=== PATIENT | female | born 1950 | race Caucasian/White ===

== ENCOUNTER → 2017-02-02 | Outpatient (CLI) | payer OTHER ==
[~2017-02-02] VITALS: Ht 147.3 cm; Wt 49.4 kg
[~2017-02-02] MED LIST: ASPIR 8181 MG PO; B12INJ IM; IBUPROFEN 200200 M1 PO; KLOR-CON 1010 MEQ PO; LASIX 40 MG TAB40 M2 PO; LIPITOR80 MG PO; LOSARTAN POTASS50 MG PO; METRONIDAZOLE45 G1 TOP; NORVASC5 MG PO; REMICADE 1100 MG/VIA IV; VITAMIN D32000 UNI1 PO
--- NOTE | ~2017-02-02 | P ---
Formerly [facility] [place] [address] PROCEDURE REPORT Name: PJ RIOS [id number] Admission: 02/02/17 Attend Phys: Coy Trimble Discharge: Date of : 48 Report #: [id number] THIS REPORT FOR: //name// CC: Kalia Bermudez DATE OF SERVICE: 02/02/2017 PROCEDURE PERFORMED: Upper endoscopy with biopsies. HISTORY OF PRESENT ILLNESS: The patient is a 67-year-old female with a history of anemia and apparently hemoccult positive stool recently. She has a history of ankylosing spondylitis, is on Remicade. She also takes aspirin. Plan is for EGD and colonoscopy today. She denies any obvious bright red blood per rectum, but does report some dark stools at times. DESCRIPTION OF PROCEDURE: The risks and benefits of the procedure were explained to the patient, those risks including but not limited to bleeding, perforation, the risk of sedation. She understood these risks and gave informed consent. Sedation was given using propofol per anesthesia. Next, using a standard Scancell upper endoscope, the scope was placed in the patient's mouth and advanced under direct vision through the esophagus, stomach and into the second portion of the duodenum. The esophagus was normal throughout. The GE junction was normal. There was a mild diffuse atrophic appearing gastritis throughout the stomach. No evidence of ulcerations or erosions. No bleeding was noted. Biopsies were obtained to rule out H. pylori. The pylorus was normal and patent. The duodenal bulb, first and second portion were all normal. Because of her history of anemia, biopsies were obtained to rule out the possibility of celiac sprue. The scope was then withdrawn and the procedure terminated. The patient tolerated the procedure well. IMPRESSION: 1. Mild atrophic tapering gastritis. Biopsies obtained. 2. Otherwise, normal upper endoscopy. RECOMMENDATIONS: 1. Await biopsy results. 2. We will proceed with colonoscopy next today. Thank you for allowing me to participate in her care. <ELECTRONICALLY SIGNED> By: Coy Bermudez MD 02/05/17 1705 1142 1157 Coy Bermudez MD /nt
--- NOTE | ~2017-02-02 | P ---
[facility] [place] [address] PROCEDURE REPORT Name: PJ RIOS Room #: REG [facility]ah[facility].#: [id number] Admission: 02/02/17 Attend Phys: Coy Trimble Discharge: Date of : 48 Report #: [id number] THIS REPORT FOR: //name// CC: Kalia Bermudez DATE OF SERVICE: 02/02/2017 PROCEDURE PERFORMED: Colonoscopy. HISTORY OF PRESENT ILLNESS: The patient is a 67-year-old female with iron deficiency anemia. Upper endoscopy was just performed, which showed a mild gastritis, otherwise normal. Plan is for colonoscopy. DESCRIPTION OF PROCEDURE: The risks and benefits of the procedure were explained to the patient, those risks including but not limited to bleeding, perforation and the risk of sedation. She understood these risks and gave informed consent. Sedation was given using propofol per anesthesia. Next, a digital rectal exam was initially performed, which was normal. Next, using a standard Fujinon colonoscope, the scope was placed in the patient's anus and advanced under direct vision to the cecum. The overall prep was excellent. The cecum and ileocecal valve were normal in appearance. Terminal ileum was intubated and normal in appearance. The ascending, transverse, descending and sigmoid colon were all normal. The rectal mucosa was normal. On retroflexion, small nonbleeding internal hemorrhoids were noted. The scope was then withdrawn and the procedure terminated. The patient tolerated the procedure well. IMPRESSION: 1. Nonbleeding internal hemorrhoids. 2. Otherwise, normal colonoscopy. RECOMMENDATIONS: No stigmata of bleeding on EGD or colonoscopy today. We will await biopsy results. We will likely recommend proceeding with an M2 capsule endoscopy of the small bowel as the patient has had apparently a Hemoccult positive stool recently and anemia. Thank you for allowing me to participate in her care. <ELECTRONICALLY SIGNED> By: Coy Bermudez MD 02/05/17 1705 1144 1159 Coy Bermudez MD /nt
--- NOTE | ~2017-02-02 | S ---
[facility] [place] [address] SURGICAL PATH RPT PROCEDURE Name: ANASTASIA RIOS Room #: REG DEWEY Rosa Elena.#: [id number] Admission: 02/02/17 Date of : 48 Discharge: Report #: [id number] Path Case #: [id number] PATHOLOGY REPORT COLLECTION DATE: 02/02/2017 RECEIVED DATE: 02/02/2017 SUBMITTING PHYS: Dr. Coy Bermudez OTHER PHYS: Dr. Kalia Hansen SPECIMEN(S) RECEIVED: A.Bx of duodenum B.Bx of gastritis * * * * * * * * * * * * FINAL DIAGNOSIS: A. Small bowel mucosa, duodenum to rule out sprue, endoscopic biopsy: - No diagnostic abnormalities present. B. Gastric mucosa, gastritis, endoscopic biopsy: - Mild chronic active gastritis with features of reactive gastropathy as well as focal intestinal metaplasia. - Negative for atrophy or dysplasia. - Negative for Helicobacter pylori. (IUV:josue; 02/05/2017) COMMENT: Helicobacter pylori immunohistochemical stain performed on block B1-Negative. PATHOLOGIST: Latoya Joshi M.D. REPORT ELECTRONICALLY SIGNED BY: Latoya Joshi M.D. DATE/TIME: 02/05/2017 16:52 * * * * * * * * * * * * GROSS PATHOLOGY: A. Received in formalin labeled "Anastasia Rios, BX of duodenum to r/o sprue," are two segments of thomas soft tissue measuring 0.6 x 0.5 x 0.3 cm in aggregate dimensions and ranging from 0.3 to 0.5 cm in maximum dimension. The specimen is submitted entirely in cassette A1. B. Received in formalin labeled "Anastasia Rios, BX of gastritis," are four segments of thomas soft tissue measuring 0.7 x 0.6 x 0.3 cm in aggregate dimensions and ranging from 0.3 to 0.3 cm in maximum dimension. The specimen is submitted entirely in cassette B1. (TSD; 02/02/2017) CLINICAL HISTORY: [address] [address] SURGICAL PATH RPT PROCEDURE Name: ANASTASIA RIOS GIORGIO Room #: REG [facility] M..#: [id number] Admission: 02/02/17 Date of : 48 Discharge: Report #: [id number] Path Case #: [id number] EGD, colonoscopy INITIAL CPT CODE(S): A; 50056 B; 52467, 10849 Professional services performed by [facility] at [address], [place] [address] Technical services performed by [facility] at [address] [place] [address], [facility] [address], [place] [address]. [facility] [address] [place] [address] PHONE: [phone] DIRECTOR: Wang Krause M.D. * * * END OF REPORT * * *
== END | disposition home or self-care (01) ==
LOC: GI 08:23
DX: K29.40 Chronic atrophic gastritis without bleeding (principal); K64.8 Other hemorrhoids; I10 Essential (primary) hypertension; E78.00 Pure hypercholesterolemia, unspecified; Z87.19 Personal history of other diseases of the digestive system; Z90.49 Acquired absence of other specified parts of digestive tract; Z98.890 Other specified postprocedural states; Z79.82 Long term (current) use of aspirin; Z87.891 Personal history of nicotine dependence; Z79.899 Other long term (current) drug therapy; Z87.39 Personal history of other diseases of the musculoskeletal system and connective tissue

== ENCOUNTER → 2017-03-07 | Outpatient (CLI) | payer OTHER, MEDICARE ==
[~2017-03-07] VITALS: Ht 147.3 cm; Wt 50.3 kg
--- NOTE | ~2017-03-07 | P ---
[facility] [place] [address] PROCEDURE REPORT Name: PJ RIOS Room #: REG [facility]#: [id number] Admission: 03/07/17 Attend Phys: Coy Trimble Discharge: Date of : 48 Report #: [id number] THIS REPORT FOR: //name// CC: Kalia Fatima MD DATE OF SERVICE: 03/07/2017 PROCEDURE PERFORMED: Upper endoscopy with cautery of duodenal AVM. HISTORY OF PRESENT ILLNESS: The patient is a 67-year-old female with a history of anemia who underwent an EGD and colonoscopy by myself recently that was essentially negative for anemia and heme positive stool. We then discussed possible repeat upper endoscopy with M2 capsule placement through the endoscope because the patient is unable to swallow pills or large items. The patient has had a neck fusion and has limited mobility of her neck as well as TMJ and unable to open her mouth very wide. I explained to the patient we will attempt to place capsule through the scope, but due to her anatomy, this may not be possible, she understands. PROCEDURE: The risks and benefits of the procedure were explained to the patient, those risks including, but not limited to bleeding, perforation, and the risk of sedation. She understood these risks and gave informed consent. Sedation was given using propofol per anesthesia. Next, using a standard Floovedinon upper endoscope, the scope was placed in the patient's mouth and advanced under direct vision through the esophagus, stomach and into the second portion of the duodenum. It was difficult for me to intubate the patient through the oropharynx simply with the endoscope knowing that the capsule catheter deployment device makes the turn more difficult, I did not feel like it was worth to attempt placing the capsule as it was extremely difficult without the catheter in place. The esophagus was normal throughout. The GE junction was normal. Overall, the gastric mucosa was normal. The pylorus was normal and patent. The duodenal bulb was normal. I advanced the scope into the first, second and third portion of the duodenum. There was a single small possible AVM nonbleeding in the second portion of the duodenum. This was cauterized with a 7-Hong Konger bipolar cautery. There was no evidence of bleeding throughout the exam today. At this point, the scope was then withdrawn and the procedure terminated. The patient tolerated the procedure well. IMPRESSION: 1. Due to the patient's anatomy, I did not feel as though passing the catheter with capsule device through her oropharynx would be successful due to the difficulty of simply passing the scope through this area. 2. 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 RECOMMENDATIONS: We would continue to monitor hemoglobin. If the patient has continued anemia in the future and heme-positive stools, could consider a double balloon enteroscopy at that point. Thank you for allowing me to participate in her care. By: 0931 [id number] Coy Bermudez MD /nt
== END | disposition home or self-care (01) ==
LOC: GI 07:16 → EDSTATUS 08:11 → GI 09:59
DX: K31.819 Angiodysplasia of stomach and duodenum without bleeding (principal); I10 Essential (primary) hypertension; E78.00 Pure hypercholesterolemia, unspecified; K21.9 Gastro-esophageal reflux disease without esophagitis; D64.9 Anemia, unspecified; Z90.49 Acquired absence of other specified parts of digestive tract; Z87.891 Personal history of nicotine dependence; Z98.890 Other specified postprocedural states; Z87.19 Personal history of other diseases of the digestive system; Z79.899 Other long term (current) drug therapy
CPT/HCPCS: 62110; 62900

== ENCOUNTER → 2017-08-22 | Outpatient (CLI) | payer OTHER, MEDICARE | LOC: MRI 09:20 | DX: R10.10 Upper abdominal pain, unspecified (principal); I10 Essential (primary) hypertension; Z87.891 Personal history of nicotine dependence ==

== ENCOUNTER 2017-10-10 13:00 | Emergency (ER) | payer OTHER, MEDICARE ==
[~2017-10-10] VITALS: Ht 147.3 cm; Wt 49.9 kg
--- NOTE | ~2017-10-10 | EKG ---
[place] [address] [employer] [address] [place] [address] ELECTROCARDIOGRAM REPORT Name: PJ RIOS [facility] #: [facility] [id number] Admission: 10/10/17 Attend Phys: Discharge: 10/10/17 Date of : 48 Report #: [id number] THIS REPORT FOR: //name// [facility] ED Test Date: 2017-10-10 Test Time: 13:53:26 Pat Name: PJ RIOS Department: Room: Gender: F [employer]: : 1950 Requested By: Jacqueline Reed Order Number: [id number] MD: Vinay Luna Measurements Intervals Dawes Rate: 72 P: 23 MD: 171 QRS: -11 QRSD: 163 T: 12 QT: 453 QTc: 496 Interpretive Statements Sinus rhythm Right bundle branch block Compared to ECG 02/07/2007 10:50:42 Right bundle-branch block now present Sinus bradycardia no longer present Electronically Signed On 10-11-2017 8:47:32 CDT by Vinay Luna [email or web address] <ELECTRONICALLY SIGNED> By: Vinay Luna MD, [facility] 10/11/17 0847 1353 1353 Vinay Luna MD, [facility] /EPI
[2017-10-10 13:30] LABS: ABSOLUTE NEUTROPHILS 6.2 thou/uL (1.4-8.2); BASOPHILS 1.2 % (0.0-2.0); EOSINOPHILS 0.3 % (0.0-3.0); HEMATOCRIT 31.2 % (37.0-47.0); LYMPHOCYTES 25.9 % (24.0-44.0); MCH 28.4 pg (26.0-34.0); MCHC 35.2 g/dL (28.0-37.0); MCV 80.8 fL (80.0-100.0); MONOCYTES 10.2 % (1.0-8.0); PLATELET COUNT 302 thou/uL (150-400); POLYS 62.4 % (36.0-66.0); RBC 3.86 mil/uL (4.20-5.00); RDW 16.7 % (10.5-14.5)
[2017-10-10 13:34] LABS: CALCIUM 10.3 mg/dL (8.5-10.1); POTASSIUM 3.1 mmol/L (3.5-5.1)
[2017-10-10 14:49] VITALS: BP 140/59
== END 2017-10-10 14:50 | disposition home or self-care (01) ==
LOC: ER 13:00
PROVIDERS: Emergency Medicine
DX: R55 Syncope and collapse (principal); E87.6 Hypokalemia; I10 Essential (primary) hypertension; E78.00 Pure hypercholesterolemia, unspecified; K21.9 Gastro-esophageal reflux disease without esophagitis; Z90.49 Acquired absence of other specified parts of digestive tract; W18.30XA Fall on same level, unspecified, initial encounter; Y93.89 Activity, other specified; Y92.89 Other specified places as the place of occurrence of the external cause; Y99.8 Other external cause status